=== PATIENT | female | born 1990 | race Caucasian/White ===

== ENCOUNTER 2017-10-05 14:54 | Emergency (ER) | payer BC, OTHER ==
[2017-10-05 15:03] VITALS: BMI 42.9
[2017-10-05 15:05] VITALS: O2SAT 100
[2017-10-05] MEDS ORDERED: Albuterol-Ipratrop 3 mg / 0.5 (3 ml) UD INH STA (15:42)
[2017-10-05] MEDS ORDERED: Albuterol-Ipratrop 3 mg / 0.5 (3 ml) UD ONE (15:49)
--- NOTE | 2017-10-05 15:49 | C.PDOC ---
History Of Present Illness Jennifer Lemus is a 27 year old female, with a past medical history of asthma and pneumonia, who presents to the emergency department complaining of productive cough with yellow phlegm and wheezing onset for x3 days. Patient used inhaler but with no relief and decided to come to the ER. Patient denies any fever, sore throat, vomit, diarrhea or body aches. No further medical complaints. PMD: None provided. Time Seen by Provider: 10/05/17 15:07 Chief Complaint (Nursing): Cough, Cold, Congestion History Per: Patient History/Exam Limitations: no limitations Onset/Duration Of Symptoms: Days (x3) Current Symptoms Are (Timing): Still Present Associated Symptoms: Cough (productive with yellow phlegm. ). denies: Fever, Chills, Sore Throat, Nausea, Vomiting Ear Symptoms: Bilateral: None Past Medical History Reviewed: Historical Data, Nursing Documentation, Vital Signs Vital Signs: Last Vital Signs Temp 98.9 F 10/05/17 15:04 Pulse 90 10/05/17 15:04 Resp 19 10/05/17 15:04 BP 114/79 10/05/17 15:04 Pulse Ox 100 10/05/17 15:53 - Medical History PMH: Asthma, Pneumonia Denies: Chronic Kidney Disease Surgical History: No Surg Hx Family History: States: Unknown Family Hx - Social History Hx Tobacco Use: No Hx Alcohol Use: No Hx Substance Use: No - Immunization History Hx Tetanus Toxoid Vaccination: No Hx Influenza Vaccination: No Hx Pneumococcal Vaccination: No Review Of Systems Except As Marked, All Systems Reviewed And Found Negative. Constitutional: Negative for: Fever, Chills, Other (body aches) ENT: Negative for: Throat Pain Respiratory: Positive for: Cough (productive), Sputum (yellow phlegm), Wheezing Gastrointestinal: Negative for: Vomiting, Diarrhea Physical Exam - Physical Exam Appears: Non-toxic Skin: Normal Color, Warm, Dry Head: Atraumatic, Normacephalic Eye(s): bilateral: Normal Inspection, PERRL, EOMI Ear(s): Bilateral: Normal Nose: Normal Oral Mucosa: Moist Throat: Normal Neck: Normal ROM, Supple Chest: Symmetrical Cardiovascular: Rhythm Regular, No Murmur Respiratory: Wheezing (Faint) Gastrointestinal/Abdominal: Normal Exam, Soft, No Tenderness, No Guarding, No Rebound Back: Normal Inspection, No CVA Tenderness Extremity: Normal ROM, No Tenderness, No Deformity, No Swelling Neurological/Psych: Oriented x3 Gait: Steady ED Course And Treatment O2 Sat by Pulse Oximetry: 100 (RA) Pulse Ox Interpretation: Normal Medical Decision Making Medical Decision Making: Initial Impression: Bronchitis Initial Plan: --Doryx 100 mg PO --Duoneb 3 ml INH --prednisone tab 40 mg PO --peak flow pre/post Tx --Reevaluation Disposition Counseled Patient/Family Regarding: Studies Performed, Diagnosis, Need For Followup, Rx Given - Disposition Referrals: Laura Givens [Staff Provider] - Disposition: HOME/ ROUTINE Disposition Time: 16:29 Condition: STABLE Additional Instructions: follow up with your doctor in 2 days call to make an appointment take medications as prescribed return to ER if symptoms worsens or progress Prescriptions: Doxycycline Monohydrate 100 mg PO BID #20 tablet predniSONE [predniSONE Tab] 40 mg PO DAILY #4 tab Instructions: Acute Bronchitis Forms: [facility] ([place]), General Discharge Instructions - Clinical Impression Clinical Impression: Bronchitis - Scribe Statement The provider has reviewed the documentation as recorded by the Roseline Aguero Provider Attestation: All medical record entries made by the Roseline were at my direction and personally dictated by me. I have reviewed the chart and agree that the record accurately reflects my personal performance of the history, physical exam, medical decision making, and the department course for this patient. I have also personally directed, reviewed, and agree with the discharge instructions and disposition.
[2017-10-05 16:50] VITALS: BP 114/65; PULSE 78; RESP 18; TEMP 97.9
== END 2017-10-05 16:49 | disposition home or self-care (01) ==
LOC: C.ER 14:54
DX: J40 Bronchitis, not specified as acute or chronic (principal)